=== PATIENT | male | born 1980 | race American Indian/Alaskan Native ===

== ENCOUNTER 2019-05-17 12:40 | Emergency (ER) | payer OTHER ==
--- NOTE | 2019-05-17 13:49 | Emergency Department Report ---
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 I am told by the [facility] EMS Captain that a young individual was found in the home with injuries as evidenced by blood on his face. The officers believed that they smelled something in the air. However, no smoke found per the Captain. Is uncertain as to whether there might have been some sort of lab or chemicals at the scene. Further information may be forthcoming. All 4 officers developed moderate headaches and nausea. Overall were placed on 100% nonrebreather masks upon my order when I became aware of the patients. 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 He did have some nausea but is not persistent. He denied shortness of breath and dizziness. -: Gradual Location: head Consistency: constant Associated Symptoms: denies other symptoms Treatments Prior to Arrival: none - Related Data Allergies Allergy/AdvReac Type Severity Reaction Status Date / Time No Known Allergies Allergy Unverified 05/17/19 13:04 ED Review of Systems ROS: Stated complaint: CARBON MONOXIDE POISONING Other details as noted in HPI Constitutional: denies: chills, fever Eyes: denies: eye pain, vision change ENT: denies: ear pain, throat pain Respiratory: denies: cough, shortness of breath Cardiovascular: denies: chest pain, palpitations Endocrine: no symptoms reported Gastrointestinal: denies: abdominal pain, nausea, diarrhea Genitourinary: denies: urgency, dysuria Musculoskeletal: denies: back pain, arthralgia Skin: denies: rash, lesions Neurological: denies: headache, weakness, paresthesias Psychiatric: denies: anxiety, depression Hematological/Lymphatic: denies: easy bleeding, easy bruising ED Past Medical Hx - Past Medical History Previous Medical History?: No - Surgical History Past Surgical History?: Yes Additional Surgical History: Right Knee - Social History Smoking Status: Never Smoker Substance Use Type: Alcohol ED Physical Exam - General Limitations: No Limitations General appearance: alert, in no apparent distress - Head Head exam: Present: atraumatic, normocephalic - Eye Eye exam: Present: normal appearance, PERRL, EOMI. Absent: scleral icterus - ENT ENT exam: Present: mucous membranes moist - Neck Neck exam: Present: normal inspection. Absent: meningismus - Respiratory Respiratory exam: Present: normal lung sounds bilaterally. Absent: respiratory distress - Cardiovascular Cardiovascular Exam: Present: regular rate, normal rhythm. Absent: systolic murmur, diastolic murmur, rubs, gallop - GI/Abdominal GI/Abdominal exam: Present: soft, normal bowel sounds. Absent: distended, tende rness - Rectal Rectal exam: Present: deferred - Extremities Exam Extremities exam: Present: normal inspection - Back Exam Back exam: Present: normal inspection - Neurological Exam Neurological exam: Present: alert, oriented X3, CN II-XII intact. Absent: motor sensory deficit - Psychiatric Psychiatric exam: Present: normal affect, normal mood - Skin Skin exam: Present: warm, dry, intact, normal color. Absent: rash ED Course Vital Signs 05/17/19 13:06 Temperature 98.4 F Pulse Rate 77 Blood Pressure 114/78 [Left] O2 Sat by Pulse 97 Oximetry - Reevaluation(s) Reevaluation #1: I discussed the care and management with Dr. Zepeda [place] poison control community liaison officer. Patient is completely asymptomatic at the time of my encounter a few minutes ago. Dr. Zepeda recommended 6 hours of nonrebreather oxygen therapy. After that time, the patient's may be released without repeating their carboxyhemoglobin level. 05/17/19 05/17/19 15:30 Critical care attestation.: If time is entered above; I have spent that time in minutes in the direct care of this critically ill patient, excluding procedure time. ED Disposition Clinical Impression: Carbon monoxide exposure Disposition: DC-01 TO HOME OR SELFCARE Is pt being admited?: No Does the pt Need Aspirin: No Condition: Stable Instructions: Carbon Monoxide Exposure (ED) Additional Instructions: Return any acute change or recurrent symptoms. Referrals: usual, employer's provider [Other] - 3-5 Days Time of Disposition: 19:00
[2019-05-17 18:40] VITALS: BP 132/76
== END 2019-05-17 19:14 | disposition home or self-care (01) ==
LOC: ED 12:40
DX: T58.91XA Toxic effect of carbon monoxide from unspecified source, accidental (unintentional), initial encounter (principal); R51 Headache; R11.0 Nausea; Y92.89 Other specified places as the place of occurrence of the external cause
CPT/HCPCS: 82375; 94760; 99284